=== PATIENT | male | born 1985 | race Caucasian/White ===

== ENCOUNTER 2018-02-04 11:00 | Emergency (ER) | payer SELFPAY ==
[~2018-02-04] VITALS: Ht 182.9 cm; Wt 67.6 kg
[~2018-02-04 11:00] MED LIST: NOHOMEMEDS
[2018-02-04 11:27] LABS: HEMATOCRIT 43.7 % (38.0-50.0); HEMOGLOBIN 15.1 G/DL (12.5-16.6); MCH 31.7 PG (29.0-34.0); MCHC 34.6 G/DL (30.0-36.0); MCV 91.8 FL (86-99); PLATELET COUNT 156 K/uL (156-360); RBC DIS.WIDTH-CV 12.6 % (11.8-14.6); RBC DIS.WIDTH-SD 42.5 % (39-53); RED BLOOD COUNT 4.76 M/uL (4.00-5.50); WHITE BLOOD COUNT 7.1 K/uL (4.1-10.2)
[2018-02-04 11:48] LABS: ALBUMIN 4.6 g/dL (3.2-4.8)
[2018-02-04 11:49] LABS: CHLORIDE 109 mEq/L (99-109); SODIUM 144 mEq/L (136-147)
[2018-02-04 11:51] LABS: GLUCOSE 94 mg/dL (70-99); TOTAL PROTEIN 6.3 g/dL (6.4-8.3)
[2018-02-04 11:54] LABS: ALKALINE PHOSPHATASE 56 IU/L (3-129)
[2018-02-04 11:55] LABS: CREATININE 0.8 mg/dL (0.6-1.3); GFR ESTIMATE (CALCULATED) > 59 mL/min/ (58.99-99999)
[2018-02-04 11:56] LABS: AST (GOT) 12 IU/L (2-34); UREA NITROGEN (BUN) 8 mg/dL (9-23)
[2018-02-04 11:58] LABS: ALT (GPT) 17 IU/L (3-49)
[2018-02-04 14:36] LABS: APPEARANCE CLEAR ((CLEAR)); BILIRUBIN NEGATIVE; BLOOD NEGATIVE; COLOR YELLOW ((YELLOW)); GLUCOSE (STRIP) NEGATIVE; KETONES NEGATIVE; LEUKOCYTES NEGATIVE; NITRITE NEGATIVE; PROTEIN (STRIP) NEGATIVE; UCUL ADDED? NO; UROBILINOGEN 0.2 MG/DL (0.2-1.0)
[2018-02-04 14:44] LABS: SPECIFIC GRAVITY > 1.060 (1.000-1.030)
[2018-02-04 15:07] LABS: LIPASE 19 U/L (1.0-51.0)
[2018-02-04] MEDS ORDERED: MOTRIN800 MG PO (16:25)
[2018-02-04] MEDS ORDERED: ZOFRAN ODT4 MG PO (16:25)
[2018-02-04 16:39] VITALS: BP 140/71
== END 2018-02-04 16:39 | disposition home or self-care (01) ==
LOC: EME 11:00
DX: R10.31 Right lower quadrant pain (principal); R11.0 Nausea; F17.210 Nicotine dependence, cigarettes, uncomplicated
CPT/HCPCS: 74177; 80053; 81003; 83690; 85027; 99281; 99285; J1885; J2405; J7030